=== PATIENT | female | born 1985 | race African-American/Black ===

== ENCOUNTER 2018-01-20 02:51 | Inpatient (IN) | payer OTHER, SELFPAY ==
[2018-01-20 03:23] VITALS: BMI 29.5
[2018-01-20] MEDS ORDERED: Ondansetron HCl/PF 4 MG/2 ML Vial IVP PRN ×3 (03:58→05:05)
[2018-01-20] MEDS ORDERED: Bicitra 30 ML UDCUP ONE (03:58)
[2018-01-20] MEDS ORDERED: CEFAZOLIN/Water 2 GM/20 ML SYRINGE ONE (03:58)
[2018-01-20] MEDS ORDERED: Promethazine HCl 25 MG/ML VIAL IM PRN ×2 (03:58→05:05)
[2018-01-20] MEDS ORDERED: Lactated Ringer's 1,000 ML IV SCH (04:00)
[2018-01-20] MEDS ORDERED: CEFAZOLIN/Water 2 GM/20 ML SYRINGE SLOW IVP SCH (04:00)
[2018-01-20] MEDS ORDERED: Bicitra 30 ML UDCUP PO SCH (04:00)
--- NOTE | 2018-01-20 04:05 | PDOC.LDHP ---
Labor and Delivery H&P Chief complaint: contractions HPI: 32 y/o at 40w11d, patient of Dr. Canela, presents with contractions that have intensified over the last hour. Denies VB, LOF, or decreased FM. ROS neg for HEENT, cv, pulm, gi, gu, neuro, psych, skin, musculoskeletal or constitutional symptoms other than mentioned above. OB History Details: 2 prior term SVDs Current complications: none Past Medical History: Hx breast cyst Current medications: pre-wendi vitamins Previous surgical history: other (left breast cyst removal) Allergies/Adverse Reactions: Allergies Allergy/AdvReac Type Severity Reaction Status Date / Time No Known Allergies Allergy Verified 01/20/18 03:25 Social history: none - Physical Exam Vital signs reviewed and normal: yes General: NAD, breathing through contractions Lungs: nonlabored breathing Abdomen: gravid Extremeties: no edema FHT: category 1 (130s, mod variability, + accels, no decels) - Vaginal Exam cm dilated: 6 (bulging bag) Effacement: 100% Station: -2 - OB Labs Blood type: O RH: positive Antibody Screen: negative HIV: negative RPR: negative HEPSAg: negative 1 hour GCT: negative GBS: negative Rubella: non-immune - Assessment L&D Assessment: term patient in labor I performed a bedside ultrasound to assess presenting part - transverse back up with funich presentation. - Plan Plan: admit to L&D, to OR for section, informed consent obtained, anesthesia consult for pain management -: Dr. Canela notified for section.
[2018-01-20 04:13] LABS: Hemoglobin 10.9 g/dL (12.0-16.0); Mean Corpuscular HGB CONC 34.3 g/dL (32.0-36.0); Mean Corpuscular Hemoglobin 31.3 pg (27.0-31.0); Mean Corpuscular Volume 91.2 fl (81.0-99.0); Mean Platelet Volume 8.5 fL (7.4-10.4); Platelet Count 164 thou/uL (130-400); RBC Distribution Width 11.9 % (11.5-14.5); Red Blood Cell (RBC) Count 3.49 mill/uL (4.20-5.40); White Blood Cell (WBC) Count 7.4 thou/uL (4.8-10.8)
[2018-01-20] MEDS ORDERED: Lidocaine 1% PF 5 ML VIAL ONE (04:15)
[2018-01-20] MEDS ORDERED: Morphine PF 1 MG/ML SYR ONE (04:15)
[2018-01-20] MEDS ORDERED: Bupivacaine 0.75% W/DEXTROSE 8.25% 2 ML AMP ONE (04:15)
[2018-01-20] MEDS ORDERED: ePHEDrine/0.9% NaCl/PF SYRINGE 50 mg/10 ml ONE (04:15)
[2018-01-20] MEDS ORDERED: Oxytocin 10 UNITS/ML VIAL ONE (04:15)
[2018-01-20] MEDS ORDERED: Fentanyl 250 MCG/5 ML VIAL ONE (04:32)
[2018-01-20 04:48] LABS: HBSAg Index 0.22 S/CO (0-0.99); Hep B Surf Ag Non-Reactive S/CO (NonReactive)
[2018-01-20 04:53] LABS: Actual Bicarbonate (HCO3v) 24 mEq/L (22-26); Base Excess -3.5 mEq/L (0 (+/- 2.5))
[2018-01-20] MEDS ORDERED: Meperidine HCl/PF 25 MG/ML VIAL SLOW IVP PRN (05:01)
[2018-01-20] MEDS ORDERED: HYDROmorphone 2 MG/ML VIAL SLOW IVP PRN (05:01)
[2018-01-20] MEDS ORDERED: diphenhydrAMINE 50 MG/ML VIAL IVP PRN (05:05)
[2018-01-20] MEDS ORDERED: Naloxone HCl 0.4 mg/ml Vial IV PRN (05:05)
[2018-01-20] MEDS ORDERED: diphenhydrAMINE 25 MG CAP PO PRN (05:05)
[2018-01-20] MEDS ORDERED: Zolpidem Tartrate 5 MG TAB PO PRN (05:05)
[2018-01-20] MEDS ORDERED: Fentanyl 5000 MCG/250 ML CADD IVPB PRN (05:05)
[2018-01-20] MEDS ORDERED: diphenhydrAMINE 50 MG/ML VIAL IM PRN (05:05)
--- NOTE | 2018-01-20 05:09 | PDOC.OPDEL ---
OB Operative/Delivery Note Delivery Dr/Surgeon: Rola Assist: Agatha Pre-Delivery Diagnosis: active labor, other (Transverse Lie at 6 cm External cephalic version to vertex with funic presentation and incidental rupture of memnbranes) Procedure/Post Delivery Dx: primary low transverse CS Weeks gestation: 40 Anesthesia: other (GETA) - Findings A Sex: male Weight: 8 lb 3 oz - 1 min: 9 - 5 min: 9 - Additional Findings/Plan Placenta delivered: manual removal findings: low transverse hysterotomy without extension, normal uterus, normal tubes, normal ovaries (bladder water tight to 240 ml distensin with normal saline) Estimated blood loss: 500ml
[2018-01-20] MEDS ORDERED: HYDROcodone/Acetaminophen 5/325 mg Tablet PO PRN (05:12)
[2018-01-20] MEDS ORDERED: Meperidine HCl/PF 25 MG/ML VIAL IM PRN (05:12)
[2018-01-20] MEDS ORDERED: Lanolin Ointment 7 GM TUBE TOP PRN (05:12)
[2018-01-20] MEDS ORDERED: fentaNYL Citrate/PF 2,000 MCG in Sodium Chloride 0.9% 60 ML IV PRN (05:15)
[2018-01-20] MEDS ORDERED: Communication Order-Pharmacy FS SCH (05:15)
[2018-01-20] MEDS ORDERED: LR w/ Pitocin 40 units/1000 ML BAG IV SCH (05:15)
[2018-01-20] MEDS ORDERED: Misoprostol 200 MCG TAB PR SCH (05:15)
[2018-01-20] MEDS ORDERED: Ketorolac Tromethamine 30 MG/ML VIAL IVP SCH (05:15)
[2018-01-20 05:22] LABS: Syphilis Antibody Nonreactive (Nonreactive); Syphilis Antibody Index 0.08 S/CO (<1.00 Non-Reactive)
--- NOTE | 2018-01-20 06:15 | OP ---
DATE OF SERVICE: 01/20/2018 I was present and scrubbed to assist the emergent low-transverse for cord prolapse with Dr. Keena Canela. Please see her note for full details.
[2018-01-20] MEDS ORDERED: Meperidine HCl/PF 25 MG/ML VIAL ONE (06:18)
[2018-01-20] MEDS ORDERED: Adacel (T-DAP) 0.5 ML VIAL IM ONE (09:00)
--- NOTE | 2018-01-20 09:26 | OP ---
DATE OF PROCEDURE: 01/19/2018 PREOPERATIVE DIAGNOSES: 1. A 32-year-old female, G3, P1, A1 at 40+ weeks gestation. 2. Active labor at 6 cm. 3. Breech presentation. 4. Successful external cephalic version followed by noted funic presentation of the umbilical cord. 5. Incidental rupture of membranes with cord prolapse. POSTOPERATIVE DIAGNOSES: 1. A 32-year-old female, G3, P1, A1 at 40+ weeks gestation. 2. Active labor at 6 cm. 3. Breech presentation. 4. Successful external cephalic version followed by noted funic presentation of the umbilical cord. 5. Incidental rupture of membranes with cord prolapse. PROCEDURE PERFORMED: Emergent primary low transverse section without extension. SURGEON: Keena Canela M.D. STORAGE WHARFAGE CLERK SURGEON: Yojana Snider M.D. of OB Hospitalist Service. ANESTHESIA: General endotracheal. ESTIMATED BLOOD LOSS: 500 mL. COMPLICATIONS: None. COUNTS: Correct x2. ANTIBIOTICS: Two grams Ancef field crop harvest contractor to the OR. FINDINGS: 1. Vigorous male infant, vertex presentation, Apgars 9 and 9, weight 8 pounds 3 ounces. 2. Umbilical cord noted to be the presenting part in front of head. 3. Normal appearing uterus, tubes, and ovaries. 4. Bladder was watertight to 50 mL of normal saline, distention and Nance catheter had clear urine d raining. DISPOSITION: To the recovery room stable. DESCRIPTION OF OPERATIVE PROCEDURE: The patient had presented in labor and delivery at 6 cm was note d to be transverse back up by OB hospitalist on ultrasound evaluation with probable cord in the lower uterine segment. The patient was desiring an attempted vaginal delivery and therefore I proceeded t o perform an external cephalic version forward roll with the head in the left upper quadrant of the patient, easily verted to vertex presentation. On exam, sono confirmed cephalic presentation an d on exam, cervix was again 6 cm and presentation was -3. During the cervical exam, the amniotic bag was ruptured and there was umbilical cord noted presenting. The head remained elevated, the f etal heart tones palpating were over 140 beats. The staff with simple anesthesia was in the unit and we emergently took the patient back for delivery. DESCRIPTION OF PROCEDURE: Informed consent of all this had been given prior to this and she was admi nistered general endotracheal anesthetic agent by the Anesthesia Service. She had been been prepped and draped during this process. Pfannenstiel incision was made in the lower abdomen. The L&D nurse continued to be between underneath the drapes elevating the head off the umbilical cord. The P fannenstiel incision was made, it was carried down to the fascia. Fascia was nicked in the midline. Fascial incision extended bilaterally using curved Manriquez scissors. Fascial incision was extended sup eriorly and inferiorly and it is dissected off the rectus muscle bellies. The rectus muscle bellies were divided in the midline. The peritoneal cavity was entered. An Daniel O retractor was placed. A 2 cm hysterotomy incision was made in the lower uterine segment above the vesicouterine fold. The baby was delivered in vertex presentation. The mouth and nares was bulb suctioned on the abdomen. T he cord was doubly clamped and cut and handed to the gear hobber, Dr. Estrada who was in attend[facility]. The usual cord blood was obtained and an arterial blood gas was also obtained. The placenta wa s manually extracted. The uterus curetted of any remaining placental fragments with dry laparotomy s ponge. Hysterotomy incision was closed in a running locking fashion and #1 Monocryl suture. Double layer closure was carried out. A 2-0 chromic was utilized to oversew some of the vesicouterine perit oneum for hemostasis. The bladder was distended with 250 mL of normal saline and noted to be intact with clear urine draining. This was performed and seen with a closer proximity of the bladder to the hysterotomy for closure side and to ascertain that no bladder incorporation had occurred and this wa s proven to be a negative distention test. The hysterotomy incision was confirmed to be hemostatic. The pelvis was irrigated and suctioned. The Daniel O retractor was removed. The rectus muscle bernard ies were inspected and noted to be hemostatic. The fascia was closed with 0 PDS suture x2 in running continuous fashion. Subcutaneous tissue was noted to be hemostatic and skin was closed with barbara . The surgery was terminated. No anesthetic or surgical complications.
[2018-01-20] MEDS ORDERED: PROPOFOL 200 MG/20 ML VIAL ONE (13:55)
[2018-01-20] MEDS ORDERED: Succinylcholine Chloride 20 MG/ML 10 ml SYRINGE FS ONE (13:55)
[2018-01-20] MEDS: Ibuprofen 800 MG TAB PO SCH ×2 (15:42→21:00)
[2018-01-20] MEDS: Docusate Calcium (SURFAK) 240 MG CAP PO SCH ×2 (15:43→21:00)
[2018-01-20] MEDS: Prenatal Vitamin 1 TAB PO SCH (15:43)
[2018-01-20] MEDS: Lactated Ringer's 1,000 ML IV SCH (23:24)
[2018-01-21 05:35] LABS: Hemoglobin 10.2 g/dL (12.0-16.0); Mean Corpuscular HGB CONC 33.9 g/dL (32.0-36.0); Mean Corpuscular Hemoglobin 30.8 pg (27.0-31.0); Mean Corpuscular Volume 90.8 fl (81.0-99.0); Mean Platelet Volume 8.4 fL (7.4-10.4); Platelet Count 164 thou/uL (130-400); Red Blood Cell (RBC) Count 3.31 mill/uL (4.20-5.40); White Blood Cell (WBC) Count 8.3 thou/uL (4.8-10.8)
[2018-01-21] MEDS: Lactated Ringer's 1,000 ML IV SCH (06:27)
--- NOTE | 2018-01-21 09:06 | PDOC.PP ---
Post Progress Note Post Day #: 1 PO intake tolerated: yes Flatus: yes Ambulation: yes Vital Signs (12 hours) Temp Pulse Resp BP Pulse Ox 01/21/18 04:00 99.5 F 106 H 18 123/68 01/21/18 00:15 98.4 F 99 18 01/21/18 00:10 98.4 F 99 18 122/69 01/20/18 20:45 99.6 F 94 16 115/66 100 Weight Weight 200 lb - Physical Examination General: NAD Cardiovascular: no m/r/g, RRR Respiratory: clear to auscultation bilaterally, non-labored breathing Abdominal: + bowel sounds, lochia, no distention, appropriately TTP Result Diagrams: 01/21/18 05:07 Additional Labs: Post Labs Blood Type O POSITIVE 01/20/18 04:03 Hep Bs Antigen Non-Reactive S/CO (NonReactive) 01/20/18 04:03 - Assessment/Plan post op day 1 from primary ltcs for labor ,unstable lie with funic presentation/ cord prolapse. doing well. routine post op care.
[2018-01-21] MEDS: Prenatal Vitamin 1 TAB PO SCH ×2 (09:34→09:41)
[2018-01-21] MEDS: Docusate Calcium (SURFAK) 240 MG CAP PO SCH ×2 (09:34→21:03)
[2018-01-21] MEDS: Simethicone Chewable 80 MG TAB PO PRN ×2 (09:34→21:03)
[2018-01-21] MEDS ORDERED: Ketorolac Tromethamine 30 MG/ML VIAL IVP PRN (09:53)
[2018-01-21] MEDS ORDERED: Acetaminophen 1,000 MG in Premix Bag 1 BAG IVPB PRN (09:54)
[2018-01-21] MEDS ORDERED: Ketorolac Tromethamine 30 MG/ML VIAL IVP SCH (10:00)
[2018-01-21] MEDS: Ibuprofen 800 MG TAB PO SCH ×3 (16:46→21:03)
[2018-01-22] MEDS: Ibuprofen 800 MG TAB PO SCH ×3 (05:41→21:10)
[2018-01-22] MEDS: Docusate Calcium (SURFAK) 240 MG CAP PO SCH ×2 (08:35→21:10)
[2018-01-22] MEDS: Prenatal Vitamin 1 TAB PO SCH (08:35)
[2018-01-22] MEDS ORDERED: HYDROcodone/Acetaminophen 5/325 mg Tablet PO PRN ×2 (09:45)
[2018-01-22] MEDS: Cepastat Lozenges 1 LOZ PO PRN (10:20)
--- NOTE | 2018-01-22 16:32 | PDOC.PP ---
Post Progress Note Post Day #: 2 PO intake tolerated: yes Flatus: yes Ambulation: yes Vital Signs (12 hours) Temp Pulse Resp BP 01/22/18 12:00 97.7 F 83 18 112/62 01/22/18 07:45 97.9 F 87 14 118/64 Weight Weight 200 lb - Physical Examination General: NAD Cardiovascular: no m/r/g, RRR Respiratory: clear to auscultation bilaterally, non-labored breathing Abdominal: + bowel sounds, lochia, no distention, appropriately TTP Result Diagrams: 01/21/18 05:07 Additional Labs: Post Labs Blood Type O POSITIVE 01/20/18 04:03 Hep Bs Antigen Non-Reactive S/CO (NonReactive) 01/20/18 04:03 - Assessment/Plan post op day 2 progressing well. stop unit controller-po pain meds
[2018-01-23] MEDS: Ibuprofen 800 MG TAB PO SCH ×2 (05:10→14:47)
[2018-01-23] MEDS: Cepastat Lozenges 1 LOZ PO PRN (05:12)
--- NOTE | 2018-01-23 07:56 | PDOC.PP ---
Post Progress Note Post Day #: 3 Subjective: ready to go home PO intake tolerated: yes Flatus: yes Ambulation: yes Vital Signs (12 hours) Temp Pulse Resp BP 01/22/18 20:00 98.9 F 85 16 109/56 L Weight Weight 200 lb - Physical Examination General: NAD Cardiovascular: no m/r/g, RRR Respiratory: clear to auscultation bilaterally, non-labored breathing Abdominal: + bowel sounds, lochia, no distention, appropriately TTP Result Diagrams: 01/21/18 05:07 Additional Labs: Post Labs Blood Type O POSITIVE 01/20/18 04:03 Hep Bs Antigen Non-Reactive S/CO (NonReactive) 01/20/18 04:03 - Assessment/Plan post op day 3-doing well. d/c home.barbara out with incision check on post op day 7
[2018-01-23 08:06] VITALS: BP 111/69; TEMP 98.4
[2018-01-23] MEDS: Docusate Calcium (SURFAK) 240 MG CAP PO SCH (09:09)
[2018-01-23] MEDS: Prenatal Vitamin 1 TAB PO SCH (09:09)
== END 2018-01-23 18:00 | disposition home or self-care (01) | DRG 766 ==
LOC: L&D/OP 02:51 → L&D 03:49 → 3SW 07:55
PROVIDERS: ADMIT Obstetrics & Gynecology; ATTEND Obstetrics & Gynecology
PROC: 10D00Z1 Extraction of Products of Conception, Low, Open Approach (ICD-10-PCS; principal; 2018-01-20)
DX: O64.1XX0 Obstructed labor due to breech presentation, not applicable or unspecified (principal); O69.0XX0 Labor and delivery complicated by prolapse of cord, not applicable or unspecified; Z37.0 Single live birth; Z3A.40 40 weeks gestation of pregnancy; O77.0 Labor and delivery complicated by meconium in amniotic fluid; Z23 Encounter for immunization
CPT/HCPCS: 36415; 51702; 59412; 76815; 82805; 85027; 86780; 86850; 86870; 86900; 86901; 86905; 86922; 87340; 90715; 99285; J1885; J2001; J2175; J2274; J2590; J2704; J3010; J3490; J7050

== ENCOUNTER 2019-08-30 07:18 | Inpatient (IN) | payer OTHER, SELFPAY ==
[2019-08-30] MEDS ORDERED: hydrALAZINE 20 MG/ML VIAL SLOW IVP PRN ×3 (07:35→22:51)
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
[2019-08-30 08:00] VITALS: BMI 29.5
[2019-08-30] MEDS ORDERED: Methylergonovine 0.2 MG/ML VIAL IM PRN (10:11)
[2019-08-30] MEDS ORDERED: Ondansetron PF 4 MG/2 ML Vial IVP PRN ×2 (10:11→16:22)
[2019-08-30] MEDS ORDERED: Lidocaine 1% (PF) 30 ML VIAL SC PRN (10:11)
[2019-08-30] MEDS ORDERED: NS / Oxytocin 40 units/1000ml 1,000 ML IV PRN (10:11)
[2019-08-30] MEDS ORDERED: Promethazine HCl 25 MG/ML VIAL IM PRN ×2 (10:11→16:22)
[2019-08-30] MEDS ORDERED: Ibuprofen 800 MG TAB PO PRN (10:11)
--- NOTE | 2019-08-30 10:11 | PDOC.BPN ---
<Amina Schulte - Last Filed: 08/30/19 10:10> - Brief Progress Note updated SVE /-2. Will admit to L&D for TOLAC and expectantly manage <Brad Madison - Last Filed: 08/30/19 11:42> Addendum - Attending - Attending Attestation Date/Time: 08/30/19 1142 I personally evaluated the patient and discussed the management with Dr. Schulte. I agree with the History, Examination, Assessment and Plan documented above with any addition or exceptions noted below. Cat 1 FHTs Cervical change as above Recheck in 2 hours, plan for pitocin if no change Anticipate
[2019-08-30] MEDS ORDERED: NS w/ Oxytocin 10 units 500 ML IV SCH (10:15)
[2019-08-30] MEDS: Lactated Ringer's 1,000 ML IV SCH ×2 (11:00→16:27)
[2019-08-30 11:14] LABS: Hemoglobin 11.4 g/dL (12.0-16.0); Mean Corpuscular Hemoglobin 31.2 pg (27.0-31.0); Mean Corpuscular Volume 91.9 fL (78.0-98.0); Mean Platelet Volume 9.1 fL (7.4-10.4); Platelet Count 180 thou/uL (130-400); Red Blood Cell (RBC) Count 3.64 mill/uL (4.20-5.40); White Blood Cell (WBC) Count 5.9 thou/uL (4.8-10.8)
[2019-08-30 12:01] LABS: Syphilis Antibody Nonreactive (Nonreactive); Syphilis Antibody Index 0.07 S/CO (<1.00 Non-Reactive)
[2019-08-30 12:02] LABS: HBSAg Index 0.19 S/CO (0-0.99); Hep B Surf Ag Non-Reactive S/CO (NonReactive)
--- NOTE | 2019-08-30 12:30 | PDOC.BPN ---
<Amos Cooper - Last Filed: 08/30/19 12:28> - Brief Progress Note SVE performed at 1230 revealed progressive change to 4/80%/-2. Patient is currently admitted to L&D and on appropriate monitors - VSS appear stable and FHTs are in the 130s with accelerations present and no deccelerations. <Brad Madison - Last Filed: 08/30/19 15:28> Addendum - Attending - Attending Attestation Date/Time: 08/30/19 1527 Contractions inadequate. Begin pitocin, 1x1, max 10. AROM when able. Recheck in 2 hours. Anticipate .
--- NOTE | 2019-08-30 14:54 | PDOC.BPN ---
<Amos Cooper - Last Filed: 08/30/19 14:52> - Brief Progress Note SVE performed at 1500 revealed progression to 4/-2. Contractions were occurring regularly Q4-7M, with FHTs in the 140s with no decels present. The patient voiced a desire to receive an epidural. <Brad Madison - Last Filed: 08/30/19 15:28> Addendum - Attending - Attending Attestation Date/Time: 08/30/19 1528 Continue to titrate pitocin Recheck p epidural and consider AROM at that time.
[2019-08-30] MEDS ORDERED: Fentanyl 4 mcg/Bup 0.1% Cadd 100 ML ONE (15:07)
[2019-08-30] MEDS ORDERED: ePHEDrine/0.9% NaCl/PF SYRINGE 50 mg/10 ml SLOW IVP PRN (16:22)
[2019-08-30] MEDS ORDERED: Lactated Ringer's 500 ML IV PRN (16:22)
[2019-08-30] MEDS ORDERED: Naloxone HCl 0.4 mg/ml Vial IVP PRN ×2 (16:22)
[2019-08-30] MEDS ORDERED: diphenhydrAMINE 50 MG/ML VIAL IVP PRN (16:22)
[2019-08-30] MEDS ORDERED: Communication Order-Pharmacy FS SCH (16:30)
[2019-08-30] MEDS ORDERED: Fentanyl 4 mcg/Bupivacaine 0.1% Cassette 100 ML EPIDURAL SCH (16:30)
--- NOTE | 2019-08-30 16:59 | PDOC.LDPN ---
Labor & Delivery Progress Note - Subjective Subjective: comfortable - Objective Vital signs reviewed and normal: yes General: NAD Uterine fundus: non tender SVE: /-1 @ [address] Madison FHT: category 1, variability present [place] contractions every: 4-5 min with pitocin at 3 - Assessment (1) Term Code(s): Z34.90 - ENCNTR FOR SUPRVSN OF NORMAL , UNSP, UNSP TRIMESTER Current Visit: Yes Status: Acute Comment: IUPC in place -Continue to titrate pitocin to adequate MVU's -Position changes as tolerated -Epidural in place (2) H/O section Code(s): Z98.891 - HISTORY OF UTERINE SCAR FROM PREVIOUS SURGERY Current Visit : Yes Status: Acute Comment: Anticipate Plan: pitocin for augmentation
--- NOTE | 2019-08-30 17:38 | PDOC.LDPN ---
Labor & Delivery Progress Note - Subjective Subjective: comfortable, other (nausea/vomiting) - Objective Vital signs reviewed and normal: yes General: NAD Uterine fundus: palpable contractions SVE: 5.5/80/-1 @ [address] Schulte FHT: category 1, absent or minimal variables [place] contractions every: 3-4 min AROM: clear fluid IUPC placed: yes - Assessment (1) Term Code(s): Z34.90 - ENCNTR FOR SUPRVSN OF NORMAL , UNSP, UNSP TRIMESTER Current Visit: Yes Status: Acute Comment: AROM with IUPC placed -Continue to titrate pitocin to adequate MVU's -Position changes as tolerated -Epidural now in place (2) H/O section Code(s): Z98.891 - HISTORY OF UTERINE SCAR FROM PREVIOUS SURGERY Current Visit : Yes Status: Acute Comment: Anticipate Plan: continue plan of care
--- NOTE | 2019-08-30 19:07 | PDOC.LDPN ---
Labor & Delivery Progress Note - Subjective Subjective: comfortable - Objective Vital signs reviewed and normal: yes General: NAD Uterine fundus: palpable contractions SVE: /-[address] Schulte FHT: category 1, variability present - Assessment (1) Term Code(s): Z34.90 - ENCNTR FOR SUPRVSN OF NORMAL , UNSP, UNSP TRIMESTER Current Visit: Yes Status: Acute Comment: IUPC in place -Continue to titrate pitocin to adequate MVU's -Position changes as tolerated -Epidural in place (2) H/O section Code(s): Z98.891 - HISTORY OF UTERINE SCAR FROM PREVIOUS SURGERY Current Visit : Yes Status: Acute Comment: Anticipate Plan: continue plan of care
[2019-08-30] MEDS: NS / Oxytocin 40 units/1000ml 1,000 ML IV SCH ×2 (20:27→21:20)
--- NOTE | 2019-08-30 20:45 | PDOC.OPDEL ---
OB Operative/Delivery Note Delivery Dr/Surgeon: Dr. Schulte with Dr. Lane attending Pre-Delivery Diagnosis: active labor Procedure/Post Delivery Dx: spontaneous vaginal delivery () Weeks gestation: 40 (40.1) Anesthesia: epidural - Findings A Sex: male - 1 min: 8 - 5 min: 9 - Additional Findings/Plan Placenta delivered: spontaneous Repaired Obstetrical Laceration: 2nd degree Estimated blood loss: 165mL Compilations/Other Findings: This is a 33 year old female @ 40.1 wks who delivered a viable M at 2023. Following an uneventful antepartum course, a vigorous male was delivered over an intact perineum in the occipitoanterior position. Anterior Shoulder and then remainder of the body delivered. Nuchal cord x1 reduced at perineum. The head was held down and mouth and nares were bulb suctioned. Cord clamped and cut and cord blood collected. Placenta delivered intact with a 3 vessel cord noted. Fundal massage was performed and the fundus was firm. The cervix and vagina were inspected and found to have 2nd degree laceration noted and repaired with 3-0 chromic in the usual fashion with good approximation. went to nursery in good condition for routine care. Apgars were 8&9 at 1 & 5 minutes, respectively. Patient tolerated delivery well and went to after routine recovery/care. Post delivery plan: routine recovery Addendum - Attending - Attending Attestation Date/Time: 08/30/19 5246 I was present and supervised the care of this 33 yo @40.1 weeks who underwent TOLAC with pitocin augmentation. She progressed well to complete and delivered a viable male over an intact perineum. Apgars 8/9. Loose nuchal cord reduced on perineum. Shoulders and body delivered easily. Placenta delivered spontaneously and intact. 3V cord. Small 2* perineal laceration repaired with 3-0 chromic in usual fashion with good hemostasis. QBL 165 mL. Infant and mother in stable condition. Resident: Eris.
[2019-08-30] MEDS ORDERED: Milk Of Magnesia 30 ML UDCUP PO PRN (22:51)
[2019-08-30] MEDS ORDERED: Bisacodyl 10 MG SUPP PR PRN (22:51)
[2019-08-30] MEDS ORDERED: diphenhydrAMINE 25 MG CAP PO PRN (22:51)
[2019-08-30] MEDS ORDERED: Docusate Calcium (SURFAK) 240 MG CAP PO SCH (23:00)
[2019-08-30] MEDS ORDERED: Ibuprofen 800 MG TAB PO SCH (23:00)
[2019-08-31 05:25] LABS: Hemoglobin 9.8 g/dL (12.0-16.0); Mean Corpuscular HGB CONC 33.6 g/dL (32.0-36.0); Mean Corpuscular Volume 92.1 fL (78.0-98.0); Mean Platelet Volume 9.4 fL (7.4-10.4); Platelet Count 158 thou/uL (130-400); RBC Distribution Width 12.1 % (11.5-14.5); Red Blood Cell (RBC) Count 3.15 mill/uL (4.20-5.40)
[2019-08-31] MEDS: Ibuprofen 800 MG TAB PO SCH ×3 (06:27→22:19)
[2019-08-31] MEDS ORDERED: Benzocaine-Menthol 82.5 ML CAN TOP PRN (06:47)
--- NOTE | 2019-08-31 07:04 | PDOC.OBPPN ---
FMR OB PN: Subj - Interval History Day: 1 Pt reports ambulating to bathroom without difficulty. She reports abdominal cramping with minimal improvement with ibuprofen. She reports pain in her perineum and from her hemorrhoids. She is tolerating PO and has minimal lochia. She is breast and bottle feeding. Denies N/V, F/C. FMR OB PN: Obj - Maternal Vital signs: BP: 108/61 HR: 72 RR: 18 Tmax: 98.0 Pox: 97% on RA Wt: 90kg - Urine output I&O: 08/30/19 08/31/19 09/01/19 06:59 06:59 06:59 Intake Total 1300 Output Total 360 Balance 940 FMR OB PN: Exam - Physical Exam General: NAD, awake, alert and oriented HEENT: EOMI, MMM, conjunctiva clear, grossly normal vision, grossly normal hearing Neck: supple, no LAD Heart: pulses present, no edema General: no respiratory distress Abdomen: soft, fundus(cm) (firm at level of umbilicus) Musculoskeletal: pulses present, FROM in all four extremities Neurological: cranial nerves II through XII intact, no focal deficit Skin: good tugor, capillary refill <2 seconds Lymphatic: no unusual bruising or bleeding Psychiatric: intact recent and remote memory, good judgement and insight - Pelvic Exam : perineal incision/laceration healing well (mild edema of perineum with some tenderness), sutures intact FMR OB PN: Data - Labs Lab results: Laboratory Results - last 24 hr 08/30/19 08/30/19 08/30/19 11:02 11:02 11:02 WBC RBC Hgb Hct MCV MCH MCHC RDW Plt Count MPV Syphilis IgG/IgM Ab Nonreactive Hep Bs Antigen Non-Reactive Blood Type O POSITIVE Antibody Screen NEGATIVE Crossmatch See Detail 08/30/19 08/31/19 11:02 04:50 WBC 5.9 8.0 RBC 3.64 L 3.15 L Hgb 11.4 L 9.8 L Hct 33.5 L 29.0 L MCV 91.9 92.1 MCH 31.2 H 31.0 MCHC 34.0 33.6 RDW 12.0 12.1 Plt Count 180 158 MPV 9.1 9.4 Syphilis IgG/IgM Ab Hep Bs Antigen Blood Type Antibody Screen Crossmatch FMR OB PN: A/P - Problem List (1) , delivered, current hospitalization Current Visit: Yes Status: Acute Code(s): O34.219 - MATERNAL CARE FOR UNSP TYPE SCAR FROM PREVIOUS DEL Comment: Continue routine care -Ibuprofen for pain control -Dermoplast for perineal pain and apply ice pack to area -PNV -Iron -Encouraged breast feeding -Encouraged ambulation (2) Hemorrhoids Current Visit: Yes Status: Acute Code(s): K64.9 - UNSPECIFIED HEMORRHOIDS Comment: Preparation H cream ordered Disposition: Continue to monitor on , anticipate d/c home tomorrow Discussion: Date/Time: 08/31/19 0704 This H&P was discussed with Dr. Madison who agrees with the above documentation and plan. Signature: Amina Schulte MD, PGY-3 Addendum - Attending - Attending Attestation Date/Time: 08/31/19 1103 I personally evaluated the patient and discussed the management with Dr. Schulte. I agree with the History, Examination, Assessment and Plan documented above with any addition or exceptions noted below.
[2019-08-31] MEDS: Docusate Calcium (SURFAK) 240 MG CAP PO SCH ×2 (08:10→22:20)
[2019-08-31] MEDS: Ferrous Sulfate 325 MG TAB PO SCH ×2 (08:11→17:56)
[2019-08-31] MEDS: Acetaminophen 325 MG TAB PO PRN (08:11)
[2019-08-31] MEDS: Prenatal Vitamin 1 TAB PO SCH (08:11)
[2019-08-31] MEDS: Hydrocortisone 1% Cream 30 GM TUBE TOP SCH ×2 (08:28→22:21)
[2019-08-31] MEDS ORDERED: Adacel (T-DAP) 0.5 ML SYRINGE IM ONE (09:00)
[2019-09-01] MEDS: Ibuprofen 800 MG TAB PO SCH ×2 (06:53→14:21)
--- NOTE | 2019-09-01 07:05 | PDOC.OBPPN ---
FMR OB PN: Subj - Interval History Day: [age] y/o @ 40.1 WGA delivered via @ 2023 on 08/30. Pt reports ambulating to bathroom and nursery without difficulty. She reports abdominal cramping with minimal improvement with ibuprofen. She reports pain in her perineum and from her hemorrhoids that have improved with the treatments in place. She is tolerating PO and has minimal lochia. She reports back pain and gas pain. She has passed flatus but denies BM. She is breast and bottle feeding. Denies N/V, F/C. FMR OB PN: Obj - Maternal Vital signs: BP: 105/58 HR: 66 RR: 19 Tmax: 98.3 Pox: 99% on RA Wt: 90kg - Urine output I&O: 08/31/19 09/01/19 09/02/19 06:59 06:59 06:59 Intake Total 1300 Output Total 360 Balance 940 FMR OB PN: Exam - Physical Exam General: NAD, awake, alert and oriented HEENT: MMM, conjunctiva clear, grossly normal vision, grossly normal hearing Neck: supple, no LAD Heart: pulses present, no edema General: no respiratory distress Deviation from normal: distended, soft, mildly tender to palpation diffusely, fundus firm Musculoskeletal: pulses present, FROM in all four extremities Neurological: no focal deficit Skin: good tugor, capillary refill <2 seconds Lymphatic: no unusual bruising or bleeding, no purpura Psychiatric: intact recent and remote memory, good judgement and insight FMR OB PN: A/P - Problem List (1) , delivered, current hospitalization Current Visit: Yes Status: Acute Code(s): O34.219 - MATERNAL CARE FOR UNSP TYPE SCAR FROM PREVIOUS DEL Comment: Continue routine care -Ibuprofen for pain control -Dermoplast for perineal pain -PNV -Iron -Bowel regimen for constipation -heating pad for back pain -Encouraged breast feeding -Encouraged ambulation (2) Hemorrhoids Current Visit: Yes Status: Acute Code(s): K64.9 - UNSPECIFIED HEMORRHOIDS Comment: Preparation H cream ordered Disposition: Anticipate d/c home today with f/u with Dr. Schulte at [facility] in 2 weeks Discussion: Date/Time: 09/01/19 0703 This H&P was discussed with Dr. Madison who agrees with the above documentation and plan. Signature: Amina Schulte MD, PGY-3 Addendum - Attending - Attending Attestation Date/Time: 09/01/19 1099 I personally evaluated the patient and discussed the management with Dr. Schulte. I agree with the History, Examination, Assessment and Plan documented above with any addition or exceptions noted below. c/o back pain. Ambulates without difficulty. SILT BLE, Motor 5/5. Hopeful d/c this afternoon or evening pending pain control.
[2019-09-01 08:08] VITALS: BP 102/55; TEMP 98.8
[2019-09-01] MEDS ORDERED: Polyethylene Glycol 3350 17 GM Packet PO SCH (09:00)
[2019-09-01] MEDS: Hydrocortisone 1% Cream 30 GM TUBE TOP SCH (09:13)
[2019-09-01] MEDS: Docusate Calcium (SURFAK) 240 MG CAP PO SCH (09:14)
[2019-09-01] MEDS: Prenatal Vitamin 1 TAB PO SCH (09:14)
[2019-09-01] MEDS: Ferrous Sulfate 325 MG TAB PO SCH ×2 (09:15→17:15)
[2019-09-01] MEDS: Acetaminophen 325 MG TAB PO PRN (11:35)
[2019-09-01] MEDS ORDERED: Simethicone Chewable 80 MG TAB PO SCH (13:00)
[2019-09-01 13:51] LABS: Hemoglobin 10.2 g/dL (12.0-16.0); Mean Corpuscular HGB CONC 34.3 g/dL (32.0-36.0); Mean Corpuscular Hemoglobin 32.1 pg (27.0-31.0); Mean Corpuscular Volume 93.6 fL (78.0-98.0); Mean Platelet Volume 9.2 fL (7.4-10.4); Platelet Count 162 thou/uL (130-400); RBC Distribution Width 12.2 % (11.5-14.5); Red Blood Cell (RBC) Count 3.19 mill/uL (4.20-5.40); White Blood Cell (WBC) Count 6.9 thou/uL (4.8-10.8)
== END 2019-09-01 17:35 | disposition home or self-care (01) | DRG 806 ==
LOC: L&D/OP 07:18 → L&D 15:43 → 3SW 22:56
PROVIDERS: ADMIT Emergency Medicine; ATTEND Emergency Medicine
PROC: 10E0XZZ Delivery of Products of Conception, External Approach (ICD-10-PCS; principal; 2019-08-30)
PROC: 10H07YZ Insertion of Other Device into Products of Conception, Via Natural or Artificial Opening (ICD-10-PCS; 2019-08-30)
PROC: 0KQM0ZZ Repair Perineum Muscle, Open Approach (ICD-10-PCS; 2019-08-30)
PROC: 10907ZC Drainage of Amniotic Fluid, Therapeutic from Products of Conception, Via Natural or Artificial Opening (ICD-10-PCS; 2019-08-30)
PROC: 6A550ZT Pheresis of Cord Blood Stem Cells, Single (ICD-10-PCS; 2019-08-30)
PROC: 3E033VJ Introduction of Other Hormone into Peripheral Vein, Percutaneous Approach (ICD-10-PCS; 2019-08-30)
DX: O34.219 Maternal care for unspecified type scar from previous cesarean delivery (principal); O87.2 Hemorrhoids in the puerperium; Z37.0 Single live birth; O69.81X0 Labor and delivery complicated by cord around neck, without compression, not applicable or unspecified; O70.1 Second degree perineal laceration during delivery; Z3A.40 40 weeks gestation of pregnancy; N85.8 Other specified noninflammatory disorders of uterus
CPT/HCPCS: 36415; 51702; 85027; 86780; 86850; 86900; 86901; 86922; 87340; J2590